=== PATIENT | male | born 1980 | race Caucasian/White ===

== ENCOUNTER 2020-03-19 12:45 | Outpatient (NON) | payer OTHER, SELFPAY ==
[2020-03-19 21:13] LABS: SARS-CoV-2 RNA PCR Negative
== END 2020-03-19 12:46 ==
PROVIDERS: Visit Provider Registered Nurse
DX: Z20.828 Contact with and (suspected) exposure to other viral communicable diseases (principal)
CPT/HCPCS: 87635; C9803; U0003

== ENCOUNTER 2021-05-20 20:45 | Emergency (ER) | payer OTHER, SELFPAY ==
[2021-05-20 20:56] VITALS: BP 167/97; PULSE 101; RESP 20; TEMP 36.2; O2SAT 98
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
== END 2021-05-20 22:17 | disposition home or self-care (01) ==
PROVIDERS: Emergency Provider Emergency Medicine; PCP Registered Nurse
DX: S00.511A Abrasion of lip, initial encounter (principal); I10 Essential (primary) hypertension; F17.200 Nicotine dependence, unspecified, uncomplicated; Y04.2XXA Assault by strike against or bumped into by another person, initial encounter; Y99.0 Civilian activity done for income or pay
CPT/HCPCS: 99282

== ENCOUNTER → 2021-07-17 10:23 | Outpatient (CLI) | payer OTHER, SELFPAY ==
--- NOTE | ~2021-07-17 | MR_ITS ---
EXAMINATION: MR brain/brain stem wo con DATE: 07/17/2021 11:32 INDICATION: Intractable episodic cluster headache. Left parietal headache. TECHNIQUE: Magnetic resonance imaging (MRI) of the brain and brainstem was performed without intraven ous contrast. Sequences included sagittal and axial T1-weighted FSE, axial diffusion-weighted FS EPI, axial T2*-weighted GRE, axial T2-weighted FLAIR Propeller, and axial T2-weighted Propeller. Apparent diffusion coefficient (ADC) maps were created. COMPARISON: None. FINDINGS: There are scattered areas of nonspecific increased T2-weighted signal intensity in the cere bral white matter, which is within normal limits for the patient's age. There is no intracranial hemo rrhage, acute infarction, or abnormal intracranial mass lesion. The ventricles are normal in size. Th e mastoid air cells are normal. There is mucosal thickening in the paranasal sinuses. The orbits are normal. IMPRESSION: 1. Normal aging brain. Reviewed, dictated and finalized at location E. [employer] IMPRESSION: 1. Normal aging brain.
== END ==
PROVIDERS: PCP Registered Nurse; Visit Provider Registered Nurse
DX: G44.011 Episodic cluster headache, intractable (principal)
CPT/HCPCS: 70551

== ENCOUNTER 2022-01-03 13:53 | Emergency (ER) | payer OTHER, SELFPAY ==
--- NOTE | ~2022-01-03 | XR_ITS ---
EXAMINATION: XR chest 2V Exam Date/Time: 01/03/2022 14:32 CDT HISTORY: LEFT AXILLA PAIN, HX OF HTN Comparison: 07/08/2015. RESULT: Lines, tubes, and devices: None. Lungs and pleura: Clear. Cardiomediastinal silhouette: Stable. Other: No acute osseous or upper abdominal finding. IMPRESSION: No acute cardiopulmonary process. Reviewed, dictated and finalized at location K.
--- NOTE | ~2022-01-03 | XR_ITS ---
EXAM: XR shoulder LT min 2V DATE: 01/03/2022 19:14 HISTORY: pain in l axillae and left shoulder X1 DAY, NKI . COMPARISON: None available. FINDINGS: Normal mineralization. No fracture or dislocation. No lytic or blastic lesion. Joint space s are maintained. No erosion or periosteal change. Soft tissues within normal limits. IMPRESSION: No acute osseous finding in the left shoulder. Reviewed, dictated and finalized at location K.
[2022-01-03 14:09] VITALS: BP 132/68; PULSE 104; RESP 18; TEMP 36.8; O2SAT 98
--- NOTE | 2022-01-03 14:12 | ECG_ITS ---
Measurements Intervals [place] Rate: 85 P: 53 DE: 180 QRS: 9 QRSD: 104 T: 68 QT: 331 QTc: 394 Interpretive Statements SINUS RHYTHM WITH SINUS ARRHYTHMIA NORMAL ECG NO PREVIOUS ECG AVAILABLE FOR COMPARISON Electronically Signed On 01-03-2022 14:22:30 CDT by Jay Woods M.D.
[2022-01-03 14:24] LABS: Basophils Absolute Auto 0.1 K/mm3 (0.0-0.1); Basophils Percent Auto 0.5 % (0.2-1.2); Eosinophils Absolute Auto 0.1 K/mm3 (0-0.3); Eosinophils Percent Auto 0.5 % (0-4.4); Hematocrit 46.8 % (42.0-52.0); Hemoglobin 15.7 g/dL (14.0-18.0); Immature Granulocyte Absolute 0.03 K/mm3 (0.00-0.031); Immature Granulocyte Percent A 0.3 % (0-0.5); Lymphocytes Absolute Auto 2.11 K/mm3 (0.9-3.2); Lymphocytes Percent Auto 18.9 % (18.3-44.2); Mean Corpuscular HGB Conc 33.5 g/dl (32-36); Mean Corpuscular Hemoglobin 31.8 pg (26-34); Mean Corpuscular Volume 94.9 fl (80-100); Mean Platelet Volume 8.8 fl (7.4-10.4); Monocytes Absolute Auto 0.4 K/mm3 (0.1-0.6); Monocytes Percent Auto 3.8 % (2.6-8.5); Neutrophils Absolute Auto 8.5 K/mm3 (1.3-6.7); Platelet Count Result 322 k/mm3 (150-375); Red Blood Count 4.93 M/mm3 (4.6-6.20); Red Cell Distribution Width 12.8 % (11.5-14.5); White Blood Count 11.2 K/mm3 (4.5-10.0)
[2022-01-03 14:34] LABS: Alanine Aminotransferase 35 U/L (6-50); Albumin Level 4.6 g/dL (3.5-5.1); Alkaline Phosphatase 55 U/L (38-126); Anion Gap 13 mmol/L (8-16); Aspartate Amino Transferase 32 U/L (17-59); Bilirubin,Total 0.4 mg/dL (0.2-1.3); Blood Urea Nitrogen 12 mg/dL (9-20); Calcium 9.4 mg/dL (8.4-10.2); Carbon Dioxide 25 mmol/L (22-30); Chloride 101 mmol/L (98-107); Estimated CRCL calculation 129 ml/min; Estimated Glomerular Filt Rate > 60; Glucose 149 mg/dL (65-110); Lipase 83 U/L (23-300); Potassium 3.9 mmol/L (3.4-5.0); Sodium 139 mmol/L (137-145)
[2022-01-03 14:36] LABS: Prothrombin Time 12.4 Seconds (11.1-14.7)
[2022-01-03 14:37] LABS: Partial Thromboplastin Time 29.9 SECONDS (22.3-36.8)
[2022-01-03 14:46] LABS: Troponin I < 0.012 ng/mL (0.000-0.034)
[2022-01-03 17:29] VITALS: BP 131/74; PULSE 85; RESP 17; TEMP 36.6; O2SAT 95
[2022-01-03 17:57] LABS: Troponin I < 0.012 ng/mL (0.000-0.034)
--- NOTE | 2022-01-03 18:38 | ED.EXTPRO ---
HPI - Extremity Problem General Chief complaint: Extremity Problem,Nontraumatic Stated complaint: left armpit pain Time Seen by Provider: 01/03/22 18:36 History of Present Illness HPI Narrative: Patient is a 41-year-old male with a history of high blood pressure here for evaluation of left axilla pain for the past day. Patient states the pain is intermittent in nature, present when he moves his arm around, and will occasionally radiate to his left elbow. Denies any injury to the area but is quite physically active. He has not taken any medication for his pain. Denies any chest pain, shortness of breath, neck pain, fevers, chills, abdominal pain, nausea, vomiting, diaphoresis. Related Data Allergies Allergy/AdvReac Type Severity Reaction Status Date / Time No Known Allergies Allergy Mild Verified 11/21/11 14:53 Review of Systems Review of Systems: Gen.: Denies fevers or chills Eyes: Denies eye pain or visual change ENT: Denies congestion Respiratory: Denies shortness of breath or cough CV: Denies chest pain or palpitations GI: Denies abdominal pain nausea, emesis or diarrhea denies burning, urgency, frequency or hematuria Musculoskeletal: Reports pain to left axilla. Denies back pain or muscle pain Neuro: Denies numbness, tingling, weakness or focal weakness Skin: Denies rash Except as documented, all other systems reviewed and negative PMFSH Social History Social History (Updated 05/20/21 @ 22:01 by Elizabeth Daniels MD) Smoking status: Current every day smoker Tobacco type: cigarettes Alcohol intake: never Substance use: never Gender identity (if verbalized by the patient): Male Exam Narrative: APPEARANCE: Well appearing, no pain in distress, well-nourished. Head: Normocephalic and atraumatic. EYES: PERRLA/EOMI, conjunctivae clear NOSE: No nasal drainage EARS: External ear normal in appearance THROAT: Oropharynx is clear. Mucous membranes are moist. NECK: Supple. No adenopathy, no masses. RESPIRATORY: Airway patent, respirations nonlabored. Clear to auscultation bilaterally, no rales, rhonchi, wheezing. CARDIOVASCULAR: 2+ radial pulses bilaterally. Regular rate and rhythm without murmurs, rubs, or gallops. ABDOMINAL: Normoactive bowel sounds. Soft, nontender, nondistended. No rebound tenderness or guarding. MUSCULOSKELETAL: Left axilla is moderately tender to palpation. Pain elicited in left axillae with external rotation. Extremities are warm and well-perfused. No edema. NEURO: Normal speech. No focal neurologic deficits. SKIN: No fluctuance, induration, warmth or visible lesion to left axilla. Skin is warm and dry. No rashes. PSYCHIATRIC: Normal affect/mood. Course Vital Signs Vital signs: Vital Signs Temperature 98.3 F 01/03/22 14:09 Pulse Rate 104 H 01/03/22 14:09 Respiratory Rate 18 01/03/22 14:09 Blood Pressure 132/68 01/03/22 14:09 Pulse Oximetry 98 01/03/22 14:09 Oxygen Delivery Room Air 01/03/22 14:09 Temperature 97.8 F 01/03/22 17:29 Pulse Rate 73 01/03/22 19:25 Respiratory Rate 23 H 01/03/22 19:25 Blood Pressure 131/89 01/03/22 19:32 Pulse Oximetry 98 01/03/22 19:25 Oxygen Delivery Room Air 01/03/22 14:09 MDM - Extremity (Nontraumatic) MDM Narrative Medical decision making narrative: 41-year-old male here for evaluation of left axilla pain for the past day. No chest pain or shortness of breath. Here, initially slightly tachycardic, likely due to pain, improved throughout hospital stay. On exam, he has reproducible tenderness on palpation of left pectoralis minor muscles and around the left axillae, no fluctuance or induration in the axilla to suggest abscess. Pain is produced with ROM so feel this is likely MSK in nature. He has 2+ radial pulses bilaterally. His heart and lungs are clear to auscultation. EKG and troponin are nonischemic, CXR is clear, basic labs unremarkable. Shoulder XR negative. He was given ibuprofen in the ED and
[2022-01-03 19:25] VITALS: PULSE 73; RESP 23; O2SAT 98
--- NOTE | 2022-01-03 19:25 | PC.NURSE ---
Assumed care of pt at this time. Pt alert and upright on stretcher.
[2022-01-03] MEDS: IBUPROFEN 600 MG TABLET PO (19:31)
[2022-01-03 19:32] VITALS: BP 131/89
== END 2022-01-03 19:44 | disposition home or self-care (01) ==
PROVIDERS: Emergency Provider Emergency Medicine; PCP Registered Nurse
DX: M79.622 Pain in left upper arm (principal); F17.210 Nicotine dependence, cigarettes, uncomplicated
CPT/HCPCS: 36415; 71046; 73030; 80053; 83690; 84484; 85025; 85610; 85730; 93005; 99284; A9270

== ENCOUNTER 2022-01-27 08:59 | Outpatient (CLI) | payer OTHER, SELFPAY ==
[2022-01-27 09:17] LABS: Hematocrit 49.3 % (42.0-52.0); Hemoglobin 16.4 g/dL (14.0-18.0)
[2022-02-02 09:02] LABS: Testosterone Total 443 ng/dL (250-1100)
[2022-02-02 22:52] LABS: Estradiol, Ultrasensitive 35 pg/mL (< OR = 29)
== END 2022-01-27 09:00 | disposition home or self-care (01) ==
LOC: ANHLAB 09:03
PROVIDERS: PCP Registered Nurse; Visit Provider Urology
DX: E29.1 Testicular hypofunction (principal)
CPT/HCPCS: 36415; 82670; 84403; 85014; 85018

== ENCOUNTER → 2022-11-05 07:49 | Outpatient (CLI) | payer OTHER, SELFPAY ==
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
== END ==
PROVIDERS: PCP Registered Nurse; Visit Provider Registered Nurse
DX: M25.562 Pain in left knee (principal)
CPT/HCPCS: 73721

== ENCOUNTER 2023-05-06 11:53 | Emergency (ER) | payer OTHER, SELFPAY ==
--- NOTE | ~2023-05-06 | XR_ITS ---
EXAMINATION: XR chest 2V 05/06/2023 13:04 INDICATION: Cough. Hypertension. PROCEDURE: 2 view chest COMPARISON: Comparison to multiple prior studies sequentially, with oldest reviewed study dated 03/05. FINDINGS: The lungs are clear. The cardiomediastinal silhouette is within normal limits. There are no pleural effusions. There is no pneumothorax suspected. IMPRESSION: 1: NO ACUTE CARDIOPULMONARY DISEASE. Reviewed, dictated and finalized at location A. [employer]
[2023-05-06 12:06] VITALS: BP 153/76; PULSE 100; RESP 16; TEMP 36.2; O2SAT 96
[2023-05-06 15:36] VITALS: O2SAT 97
--- NOTE | 2023-05-06 15:47 | ED.URI ---
HPI - URI/Sore Throat General Chief Complaint: Upper Respiratory Infection Stated Complaint: cough 2 weeks Time Seen by Provider: 05/06/23 15:33 Source: patient, RN notes reviewed and old records reviewed Mode of arrival: ambulatory Limitations: no limitations History of Present Illness HPI Narrative: This is a 42 year old male who presents for evaluation of cough for 2 weeks. He states 2 weeks ago he developed dry cough and he feels like he has phlegm. His cough is worse in the evenings. HE also reports some wheezing and congestion. He denies shortness of breath, fever, chills. leg swelling. He has been taking mucinex. He took home covid test yesterday that was negative. Related Data Allergies Allergy/AdvReac Type Severity Reaction Status Date / Time No Known Allergies Allergy Mild Verified 05/06/23 11:54 Review of Systems Constitutional: Constitutional: Denies weakness ENT: Reports nasal congestion Cardiovascular: Cardiovascular: Denies syncope, Denies rapid heart rate, Denies irregular heart rhythm, Denies leg edema and Denies dyspnea Respiratory: Respiratory: Denies chest congestion, Reports cough, Denies hemoptysis, Denies excessive phlegm production and Denies dyspnea Gastrointestinal: Gastrointestinal: Denies abdominal pain, Denies hematochezia, Denies diarrhea and Denies vomiting Genitourinary: Genitourinary: Denies hematuria, Denies dysuria, Denies penile discharge and Denies testicular pain Musculoskeletal: Musculoskeletal: Denies joint swelling, Denies loss of height and Denies muscle weakness Neurologic: Denies syncope, Denies focal weakness and Denies weakness PMFSH Past Medical History Medical History (Updated 05/06/23 @ 16:00 by Megan Nathan MD) Hypertension Surgical History Surgical History (Updated 05/06/23 @ 15:51 by Megan Nathan MD) No pertinent past surgical history Social History Social History Smoking status: Current every day smoker Tobacco type: cigarettes Alcohol intake: never Substance use: never Gender identity (if verbalized by the patient): Male Exam Const: General: no acute distress and alert Nutritional Appearance: well nourished Orientation/consciousness: patient oriented x3 Limitations: no limitations HENMT: Head: normal to inspection Eyes: EOM: EOMs intact bilaterally Chest: Chest palpation & inspection: normal inspection of the chest Resp: Effort & Inspection: normal respiratory effort Auscultation: clear to auscultation bilaterally Cardio: Rate: regular rate Rhythm: regular rhythm Heart sounds: no murmurs GI: GI Palp: Yes Soft to palpation, No Tenderness to palpation present (GI), No Guarding due to palpation present (GI) and No Rigid due to palpation Auscultation: normal bowel sounds Skin: General skin exam: normal color Rashes: no rashes Wounds: no wounds Neuro: General: patient oriented x3, moves all extremities and CN's II-XI intact bilaterally Extrem: General: normal to inspection Psych: Mental Status: mental status grossly normal Affect: normal affect Attitude: cooperative Course Reevaluation(s) Reevaluation #1: I Discussed with patient chest xray is clear without pneumonia. I discussed discharge plan with treatment with albuterol, cough medication and steroids. Date: 05/06/23 Time: 15:59 Vital Signs Vital signs: Vital Signs Temperature 97.1 F L 05/06/23 12:06 Pulse Rate 100 05/06/23 12:06 Respiratory Rate 16 05/06/23 12:06 Blood Pressure 153/76 H 05/06/23 12:06 Pulse Oximetry 96 05/06/23 12:06 Temperature 97.1 F L 05/06/23 12:06 Pulse Rate 89 05/06/23 16:15 Respiratory Rate 16 05/06/23 16:15 Blood Pressure 130/74 05/06/23 16:15 Pulse Oximetry 97 05/06/23 16:15 Oxygen Delivery Room Air 05/06/23 15:36 MDM - URI/Sore Throat Differential Diagnosis Differential diagnosis: Likely upper respiratory infection, vi
[2023-05-06 16:15] VITALS: BP 130/74; PULSE 89; RESP 16; O2SAT 97
== END 2023-05-06 16:17 | disposition home or self-care (01) ==
PROVIDERS: Emergency Provider General Practice; PCP Registered Nurse
DX: J20.9 Acute bronchitis, unspecified (principal); I10 Essential (primary) hypertension; F17.210 Nicotine dependence, cigarettes, uncomplicated
CPT/HCPCS: 71046; 99283